=== PATIENT | female | born 1960 ===

== ENCOUNTER 2018-12-10 11:56 | Emergency (ER) | payer OTHER ==
[2018-12-10 12:11] VITALS: BMI 23.8
[2018-12-10 12:12] VITALS: BP 129/70; PULSE 62; RESP 16; TEMP 98.6; O2SAT 100
--- NOTE | 2018-12-10 17:05 | C.PDOC ---
History Of Present Illness 58 y/o female comes in to ED complaining of seasonal allergies. Patient states she gets this every year at this time of the year. Reports shes been taking tylenol and claritin with some relief. Denies fever, nausea, vomiting, cough, SOB, or other complaints. Time Seen by Provider: 12/10/18 12:21 Chief Complaint (Nursing): Medical Clearance History Per: Patient History/Exam Limitations: no limitations Onset/Duration Of Symptoms: Days Current Symptoms Are (Timing): Still Present Past Medical History Reviewed: Historical Data, Nursing Documentation, Vital Signs Vital Signs: Last Vital Signs Temp 98.6 F 12/10/18 12:11 Pulse 62 12/10/18 12:11 Resp 16 12/10/18 12:11 BP 129/70 12/10/18 12:11 Pulse Ox 100 12/10/18 12:11 - Medical History PMH: Osteoporosis Family History: States: No Known Family Hx - Social History Hx Alcohol Use: No Hx Substance Use: No Review Of Systems Except As Marked, All Systems Reviewed And Found Negative. Constitutional: Negative for: Fever, Chills Eyes: Positive for: Redness ENT: Positive for: Other (throat irritation) Respiratory: Negative for: Cough, Shortness of Breath Gastrointestinal: Negative for: Nausea, Vomiting Skin: Negative for: Rash Physical Exam - Physical Exam Appears: Non-toxic, No Acute Distress Skin: Warm, Dry Head: Atraumatic, Normacephalic Eye(s): bilateral: Normal Inspection Oral Mucosa: Moist Throat: Normal, No Erythema Cardiovascular: Rhythm Regular, No Murmur Respiratory: Normal Breath Sounds, No Rales, No Rhonchi, No Wheezing Extremity: Bilateral: Atraumatic, Normal ROM Neurological/Psych: Oriented x3, Normal Speech ED Course And Treatment O2 Sat by Pulse Oximetry: 100 (RA) Pulse Ox Interpretation: Normal Disposition - Disposition Referrals: Sagrario Mckeon MD [Staff Provider] - Disposition: HOME/ ROUTINE Disposition Time: 12:45 Condition: GOOD Additional Instructions: LUIS ALBERTO OWENS, thank you for letting us take care of you today. The emergency medical care you received today was directed at your acute symptoms. If you were prescribed any medication, please fill it and take as directed. It may take several days for your symptoms to resolve. Return to the Emergency Department if your symptoms worsen, do not improve, or if you have any other problems. Please contact your doctor or call one of the physicians/clinics you have been referred to that are listed on the Patient Visit Information form that is included in your discharge packet. Bring any paperwork you were given at discharge with you along with any medications you are taking to your follow up visit. Our treatment cannot replace ongoing medical care by a primary care provider outside of the emergency department. Thank you for allowing the [facility] team to be part of your care today. Follow up with your primary care doctor in 3-5 days for re-evaluation and further management. Prescriptions: Montelukast [Singulair] 10 mg PO DAILY #14 tab Pseudoephedrine [Sudafed Tab] 30 mg PO Q6 PRN #20 tab PRN Reason: congestion Instructions: Seasonal Allergies (DC) Forms: [employer] (Divehi) - Clinical Impression Clinical Impression: Seasonal allergies - Scribe Statement The provider has reviewed the documentation as recorded by the Willard Rahman Provider Attestation: All medical record entries made by the Hughibignacio were at my direction and personally dictated by me. I have reviewed the chart and agree that the record accurately reflects my personal performance of the history, physical exam, medical decision making, and the department course for this patient. I have also personally directed, reviewed, and agree with the discharge instructions and disposition.
== END 2018-12-10 13:26 | disposition home or self-care (01) ==
LOC: C.ER 11:56
DX: J30.2 Other seasonal allergic rhinitis (principal)

== ENCOUNTER 2018-12-16 14:17 | Emergency (ER) | payer OTHER ==
[2018-12-16 14:17] VITALS: BMI 23.8
[2018-12-16 14:38] VITALS: BP 125/75; PULSE 67; RESP 16; TEMP 98.3; O2SAT 99
--- NOTE | 2018-12-16 15:52 | C.PDOC ---
History Of Present Illness The patient is a 58-year-old female who states she was seen in the ED for evaluation of seasonal allergies and was prescribed Singulair and Sudafed. She returns to the ED because she has head congestion and fullness in her ears for the past 2-3 days. Patient states she has been compliant with the medications and notices some relief but not complete resolution and is concerned. She denies fever, chills, dizziness, weakness, cough, shortness of breath, nausea, vomiting, tinnitus, vertigo, and photophobia. Chief Complaint (Nursing): ENT Problem History Per: Patient History/Exam Limitations: None Onset/Duration Of Symptoms: Hrs Current Symptoms Are (Timing): Still Present Past Medical History Reviewed: Historical Data, Nursing Documentation, Vital Signs Vital Signs: Last Vital Signs Temp 98.3 F 12/16/18 14:37 Pulse 67 12/16/18 14:37 Resp 16 12/16/18 14:37 BP 125/75 12/16/18 14:37 Pulse Ox 99 12/16/18 14:37 Primary Care Provider: Sagrario Mckeon I - Medical History PMH: Arthritis, Back Problems, Osteoporosis Surgical History: Appendectomy Family History: States: Unknown Family Hx - Social History Hx Alcohol Use: No Hx Substance Use: No - Immunization History Hx Tetanus Toxoid Vaccination: No Hx Influenza Vaccination: No Hx Pneumococcal Vaccination: No Review Of Systems Constitutional: Negative for: Fever, Chills, Weakness ENT: Positive for: Other (ear fullness ) Respiratory: Negative for: Shortness of Breath Gastrointestinal: Negative for: Nausea, Vomiting Neurological: Negative for: Dizziness Physical Exam - Physical Exam Appears: Non-toxic, No Acute Distress Skin: Normal Color, Warm, Dry Head: Atraumatic, Normacephalic Eye(s): bilateral: Normal Inspection Ear(s): Left: Normal, Right: Other (cerumen visualized, slightly obstructing the TM) Nose: No Discharge, Other (moderately enlarged turbinates ) Oral Mucosa: Moist Neck: Supple Chest: Symmetrical, No Deformity, No Tenderness Cardiovascular: Rhythm Regular, No Murmur Respiratory: Normal Breath Sounds, No Rales, No Rhonchi, No Wheezing Gastrointestinal/Abdominal: Soft, No Tenderness, No Guarding, No Rebound Extremity: Normal ROM, Capillary Refill (less than 2 seconds ) Neurological/Psych: Oriented x3, Normal Speech, Normal Cognition ED Course And Treatment O2 Sat by Pulse Oximetry: 99 (on RA) Pulse Ox Interpretation: Normal Disposition Counseled Patient/Family Regarding: Diagnosis, Need For Followup, Rx Given - Disposition Referrals: Sagrario Mckeno MD [Staff Provider] - Disposition: HOME/ ROUTINE Disposition Time: 15:47 Condition: STABLE Additional Instructions: Continue previous meds as prescribed Add Flonase daily Follow up with PMD in 1-2 days for formal allergy testing and further assessment Rest and Hydration Return to the ED if symptoms worsen Prescriptions: Fluticasone Propionate [Flonase Allergy Relief] 1 spray NS BID PRN #1 bottle PRN Reason: Allergy Symptoms Instructions: Seasonal Allergies (DC), Sinus Headache (DC) Forms: [employer] (French) - Clinical Impression Clinical Impression: Head congestion, Seasonal allergies - PA / RECREATIONAL THERAPIST / Resident Statement MD/DO has reviewed & agrees with the documentation as recorded. - Scribe Statement The provider has reviewed the documentation as recorded by the Scribe (Jaye Bhatia) All medical record entries made by the Scribe were at my direction and personally dictated by me. I have reviewed the chart and agree that the record accurately reflects my personal performance of the history, physical exam, medical decision making, and the department course for this patient. I have also personally directed, reviewed, and agree with the discharge instructions and disposition.
== END 2018-12-16 15:57 | disposition home or self-care (01) ==
LOC: C.ER 14:17
DX: J30.2 Other seasonal allergic rhinitis (principal); R09.81 Nasal congestion; M81.0 Age-related osteoporosis without current pathological fracture